=== PATIENT | male | born 1990 | race Caucasian/White ===

== ENCOUNTER 2019-09-26 01:47 | Emergency (ER) | payer BC, SELFPAY ==
[2019-09-26 01:52] VITALS: BP 147/94; PULSE 99; RESP 20; TEMP 36.3; O2SAT 100
[2019-09-26] MEDS: SODIUM CHLORIDE 0.9% IV 1,000 ML 999 ML IV CONT (03:15)
[2019-09-26 03:22] LABS: Basophils Percent Auto 0.2 % (0.2-1.2); Eosinophils Percent Auto 0.3 % (0-4.4); Hematocrit 49.3 % (42.0-52.0); Hemoglobin 17.6 g/dL (14.0-18.0); Immature Granulocyte Absolute 0.07 K/mm3 (0.00-0.031); Immature Granulocyte Percent A 0.5 % (0-0.5); Lymphocytes Absolute Auto 3.16 K/mm3 (0.9-3.2); Lymphocytes Percent Auto 22.3 % (18.3-44.2); Mean Corpuscular HGB Conc 35.7 g/dl (32-36); Mean Corpuscular Hemoglobin 30.9 pg (26-34); Mean Corpuscular Volume 86.6 fl (80-100); Mean Platelet Volume 11.2 fl (7.4-10.4); Monocytes Percent Auto 7.1 % (2.6-8.5); Neutrophils Absolute Auto 9.9 K/mm3 (1.3-6.7); Neutrophils Percent Auto 69.6 % (45.5-73.1); Platelet Count Result 288 k/mm3 (150-375); Red Blood Count 5.69 M/mm3 (4.6-6.20); Red Cell Distribution Width 11.9 % (11.5-14.5); White Blood Count 14.2 K/mm3 (4.5-10.0)
[2019-09-26 03:34] LABS: Alanine Aminotransferase 40 U/L (4-50); Albumin Level 5.1 g/dL (3.5-5.1); Alkaline Phosphatase 64 U/L (38-126); Aspartate Amino Transferase 32 U/L (17-59); Bilirubin,Total 1.7 mg/dL (0.2-1.3); Blood Urea Nitrogen 12 mg/dL (9-20); Calcium 10.2 mg/dL (8.4-10.2); Carbon Dioxide 18 mmol/L (22-30); Chloride 106 mmol/L (98-107); Estimated Glomerular Filt Rate > 60; Glucose 105 mg/dL (75-110); Lipase 58 U/L (23-300); Potassium 3.8 mmol/L (3.4-5.0); Sodium 137 mmol/L (137-145)
--- NOTE | 2019-09-26 04:00 | ED.ANXIETY ---
HPI - Anxiety General Chief Complaint: Anxiety Stated Complaint: anxiety Time Seen by Provider: 09/26/19 02:29 History of Present Illness HPI narrative: Patient is a 29-year-old who presents with chronic anxiety. He reports that he has been seeing his primary care doctor for this. He is on several antidepressants and antianxiety meds. Anxiety has been causing him to vomit and be unable to sleep for the last month. Came in tonight because he continues to be unable to sleep. Reports he is been started on antacids in case he is developed stomach ulcers from the stress. No blood in his emesis. No heartburn. No new stressors at home or work. Related Data Home Medications Medication Instructions Recorded Confirmed alprazolam 0.25 mg PO TID PRN 09/26/19 buspirone 7.5 mg PO TID 09/26/19 escitalopram oxalate [Lexapro] 10 mg PO HS 09/26/19 omeprazole 40 mg PO DAILY 09/26/19 Allergies Allergy/AdvReac Type Severity Reaction Status Date / Time No Known Allergies Allergy Unverified 09/26/19 02:00 Review of Systems Review of Systems: All systems reviewed & are unremarkable except as noted in HPI and below Constitutional: Constitutional: Denies fatigue, Denies fever(s) and Denies weakness Gastrointestinal: Gastrointestinal: Denies abdominal pain, Denies diarrhea, Reports nausea and Reports vomiting Psychiatric: Psychiatric: Denies anxiety and Denies suicidal ideation PMFSH Past Medical History Medical History (Updated 09/26/19 @ 04:15 by John Flores MD) Anxiety Depression Surgical History Surgical History (Updated 09/26/19 @ 04:08 by John Flores MD) No pertinent past surgical history Social History Social History (Updated 09/26/19 @ 04:08 by John Flores MD) Smoking status: Never smoker Gender identity (if verbalized by the patient): Male Exam Narrative: Exam Narrative: GENERAL: Anxious-appearing, well-nourished, and in no acute distress. HEAD: Normocephalic, atraumatic. ENT: Mucous membranes moist. CHEST: Clear to auscultation. No respiratory distress. HEART: Regular rate and rhythm. Normal peripheral pulses. ABDOMEN: Soft, nontender, nondistended, normal active bowel sounds. EXTREMITIES: Normal range of motion. No edema. NEURO: Alert and oriented x3. PSYCH: Anxious, no si/hi. Course Course Emergency Course: Informed of results. D/c home. Will try some atarax in the evening to help with sleep/anxiety. Vital Signs Vital signs: Vital Signs Temperature 97.4 F L 09/26/19 01:52 Pulse Rate 99 09/26/19 01:52 Respiratory Rate 09/26/19 01:52 Blood Pressure 147/94 H 09/26/19 01:52 Pulse Oximetry 100 09/26/19 01:52 Temperature 97.4 F L 09/26/19 01:52 Pulse Rate 99 09/26/19 01:52 Respiratory Rate 09/26/19 01:52 Blood Pressure 147/94 H 09/26/19 01:52 Pulse Oximetry 100 09/26/19 01:52 MDM - Anxiety Lab Data Result diagrams: 09/26/19 03:12 09/26/19 03:11 Labs: Lab Results 09/26/19 09/26/19 Range/Units 03:11 03:12 WBC 14.2 H (4.5-10.0) K/mm3 RBC 5.69 (4.6-6.20) M/mm3 Hgb 17.6 (14.0-18.0) g/dL Hct 49.3 (42.0-52.0) % MCV 86.6 (80-100) fl MCH 30.9 (26-34) pg MCHC 35.7 (32-36) g/dl RDW 11.9 (11.5-14.5) % Plt Count 288 (150-375) k/mm3 MPV 11.2 H (7.4-10.4) fl Immature Gran % (Auto) 0.5 (0-0.5) % Neut % (Auto) 69.6 (45.5-73.1) % Lymph % (Auto) 22.3 (18.3-44.2) % [place] % (Auto) 7.1 (2.6-8.5) % Eos % (Auto) 0.3 (0-4.4) % Baso % (Auto) 0.2 (0.2-1.2) % Lymph # (Auto) 3.16 (0.9-3.2) K/mm3 [place] # (Auto) 1.0 H (0.1-0.6) K/mm3 Eos # (Auto) 0.0 (0-0.3) K/mm3 Baso # (Auto) 0.0 (0.0-0.1) K/mm3 Abs Immat Gran (auto) 0.07 H (0.00-0.031) K/mm3 Absolute Neuts (auto) 9.9 H (1.3-6.7) K/mm3 Absolute Nucleated RBC 0.0 (0.0-0.012) K/mm3 Nucleated RBC % 0.0 (0.0-0.2) % Sodium 137 (137-145) mmol/L Potassium 3.8 (3.4-5.
[2019-09-26 05:17] VITALS: BP 141/83; PULSE 91; RESP 15; O2SAT 100
== END 2019-09-26 05:18 | disposition home or self-care (01) ==
PROVIDERS: Emergency Provider Emergency Medicine; PCP Physician Assistant
DX: F41.9 Anxiety disorder, unspecified (principal); F32.9 Major depressive disorder, single episode, unspecified
CPT/HCPCS: 36415; 80048; 80076; 83690; 85025; 96361; 96374; 99284; J2060; J7030

== ENCOUNTER 2021-10-17 13:31 | Emergency (ER) | payer BC, SELFPAY ==
[2021-10-17 13:41] VITALS: BP 151/98; PULSE 72; RESP 18; TEMP 36.4; O2SAT 97
--- NOTE | 2021-10-17 14:03 | ED.URI ---
HPI - URI/Sore Throat General Chief Complaint: Upper Respiratory Infection Stated Complaint: Sinus,cough Source: patient and RN notes reviewed Mode of arrival: ambulatory Limitations: no limitations History of Present Illness HPI Narrative: 31-year-old male presented for complaint of cough x3 weeks, hoarseness, head pressure, ear popping, and runny nose. No fever or body aches. Taking OTC meds without relief. No covid vaccination. Denies shortness of breath, wheezing, nausea, vomiting, fevers or chills. MD elicited complaint: cough Related Data Home Medications Medication Instructions Recorded Confirmed escitalopram oxalate 10 mg tablet 20 mg PO HS 09/26/19 10/17/21 (Lexapro) omeprazole 40 mg capsule,delayed 40 mg PO DAILY 09/26/19 10/17/21 release Allergies Allergy/AdvReac Type Severity Reaction Status Date / Time No Known Allergies Allergy Verified 10/17/21 13:40 Review of Systems Review of Systems: CONSTITUTIONAL: denies malaise, chills, sweats, fever EYES: Denies visual changes, redness, or discharge ENT: Reports rhinorrhea, congestion, otalgia CARDIOVASCULAR: Denies chest pain, palpitations, edema RESPIRATORY: Reports cough, post nasal drainage. Denies dyspnea GASTROINTESTINAL: Denies abdominal pain, nausea, vomiting, diarrhea SKIN: Denies rash or itching MUSCULOSKELETAL: denies myalgia NEUROLOGIC: reports headache PMFSH Past Medical History Medical History Anxiety Depression Surgical History Surgical History No pertinent past surgical history Social History Social History Smoking status: Never smoker Gender identity (if verbalized by the patient): Male Exam Narrative: GENERAL: Ill-appearing, nontoxic EYES: conjunctivae clear ENT: Mucous membranes moist. TMs pearly ornelas with normal light reflex bilaterally; no tragal tenderness. Oropharynx erythematous without lesions or exudate. NECK: No lymphadenopathy CHEST: Lungs coarse to bilateral bases, exp wheezing. No respiratory distress, speaks in full sentences. HEART: Regular rate and rhythm. No murmur heard. SKIN: Warm, dry, no rash. NEURO: Alert and oriented x3. PSYCH: Normal mood and affect Course Course Emergency Course: Patient is aware of diagnosis, understands and agrees to treatment plan. Anticipatory guidance given. Patient agrees to follow-up as directed and is aware of reasons to seek care at the emergency department. Portions of this record may have been created with voice recognition software Level of Care: Express Care Visit Vital Signs Vital signs: Vital Signs Temperature 97.6 F 10/17/21 13:41 Pulse Rate 72 10/17/21 13:41 Respiratory Rate 18 10/17/21 13:41 Blood Pressure 151/98 H 10/17/21 13:41 Pulse Oximetry 97 10/17/21 13:41 Oxygen Delivery Room Air 10/17/21 13:41 Temperature 97.6 F 10/17/21 13:41 Pulse Rate 72 10/17/21 13:41 Respiratory Rate 18 10/17/21 13:41 Blood Pressure 151/98 H 10/17/21 13:41 Pulse Oximetry 97 10/17/21 13:41 Oxygen Delivery Room Air 10/17/21 13:41 reviewed MDM - URI/Sore Throat MDM Narrative Medical decision making narrative: Symptoms present for 3 weeks. Reviewed Rx's with patient. Advised supportive measures and signs/symptoms to go to the ER. Pt is appropriate for outpt treatment and f/u. Differential Diagnosis Differential diagnosis: Likely upper respiratory infection, sinusitis and viral infection Discharge Plan Discharge Clinical Impression: Upper respiratory infection Qualifiers: URI type: unspecified URI Qualified Code(s): J06.9 - Acute upper respiratory infection, unspecified Patient Disposition: Home, Self-Care Condition: Stable Instructions: Antibiotic Form, Upper Respiratory Infection (ED) Additional Instructions: Take prescription Medi
== END 2021-10-17 14:18 | disposition home or self-care (01) ==
PROVIDERS: Emergency Provider Nurse Practitioner Family; PCP Physician Assistant
DX: J06.9 Acute upper respiratory infection, unspecified (principal); F41.9 Anxiety disorder, unspecified; F32.A Depression, unspecified
CPT/HCPCS: 99213; G0463